=== PATIENT | female | born 1955 | race Caucasian/White ===

== ENCOUNTER 2018-01-15 09:04 | Outpatient (CLI) | payer BC | END 2018-01-15 09:05 | disposition home or self-care (01) | LOC: BICMAMMO 09:04 | PROVIDERS: ATTEND Obstetrics & Gynecology | DX: Z12.31 Encounter for screening mammogram for malignant neoplasm of breast (principal) | CPT/HCPCS: 77063; 77067 ==

== ENCOUNTER 2019-01-16 09:17 | Outpatient (CLI) | payer BC ==
--- NOTE | 2019-01-17 11:58 | MMO ---
Bilateral MAMMO Bilat Screen [facility]. CLINICAL HISTORY: Patient is 63 years old and is seen for screening. The patient has no family history of breast cancer. The patient has no personal history of cancer. The patient has a history of left Ultrasound Guided Core Biopsy in December,, left Ultrasound Guided Core Biopsy in December, - benign, right Excisional Biopsy in - Benign, left Ultrasound Guided Core Biopsy in 2004 - benign, left Excisional Biopsy in 1997 - Benign and bilateral Cyst Aspiration - Patient has had multiple cyst aspirations over the. VIEWS: The views performed were: bilateral craniocaudal with tomosynthesis and bilateral mediolateral oblique with tomosynthesis. FILMS COMPARED: The present examination has been compared to prior imaging studies performed at on 08/15/2004, 02/14/2005, 08/16/2005, 02/14/2006, 02/15/2007, 02/17/2008, 02/17/2009, 12/16/2009, 07/05/2010, 12/19/2010, 07/28/2011, 12/20/2011, 06/04/2012, 12/25/2012, 12/26/2013, 12/28/2014, 12/31/2015, 01/09/2017 and 01/15/2018. MAMMOGRAM FINDINGS: There are scattered fibroglandular densities. Finding 1: There is a stable post-surgical scar seen in the left breast. Finding 2: There is a stable biopsy clip seen in the left breast. Finding 3: There are stable benign appearing calcifications seen in both breasts. Finding 4: There are stable benign appearing densities seen in both breasts. There are no suspicious masses, suspicious calcifications, or new areas of architectural distortion. IMPRESSION: THERE IS NO MAMMOGRAPHIC EVIDENCE OF MALIGNANCY. A ROUTINE FOLLOW-UP MAMMOGRAM IN 1 YEAR IS RECOMMENDED. THE RESULTS OF THIS EXAM WERE SENT TO THE PATIENT. ACR BI-RADS Category 2 - Benign finding MAMMOGRAPHY NOTE: 1. A negative mammogram report should not delay a biopsy if a dominant of clinically suspicious mass is present. 2. Approximately 10% to 15% of breast cancers are not detected by mammography. 3. Adenosis and dense breasts may obscure an underlying neoplasm.
== END 2019-01-16 09:18 | disposition home or self-care (01) ==
LOC: BICMAMMO 09:17
PROVIDERS: ATTEND Obstetrics & Gynecology
DX: Z12.31 Encounter for screening mammogram for malignant neoplasm of breast (principal)
CPT/HCPCS: 77063; 77067

== ENCOUNTER 2019-02-18 10:36 | Outpatient (CLI) | payer BC ==
--- NOTE | 2019-02-18 11:31 | BD ---
BONE DENSITOMETRY USING DEXA: HISTORY: Postmenopausal screening for osteoporosis. FINDINGS: Lumbar Spine: BMD (g/cm2) L1 0.950 T-Score: -0.4 Z-Score: 1.1 L2 1.059 T-Score: 0.3 Z-Score: 1.9 L3 1.043 T-Score: -0.4 Z-Score: 1.4 L4 0.953 T-Score: -1.0 Z-Score: 0.8 L1-L4 0.998 T-Score: -0.4 Z-Score: 1.2 Femoral Neck: 0.871 T-Score: 0.1 Z-Score: 1.6 Total Femur: 1.068 T-Score: 1.0 Z-Score: 2.2 Impression: Normal bone mineral density. No evidence of osteopenia/osteoporosis. POS: [facility]
== END 2019-02-18 10:37 | disposition home or self-care (01) ==
LOC: BICMAMMO 10:36
PROVIDERS: ATTEND Family Medicine
DX: Z13.820 Encounter for screening for osteoporosis (principal); M85.88 Other specified disorders of bone density and structure, other site
CPT/HCPCS: 77080

== ENCOUNTER 2019-07-15 14:38 | Outpatient (CLI) | payer BC ==
--- NOTE | 2019-07-15 14:58 | RAD ---
XR Finger(s) Lt Min 2 View History: Nodule of finger Comparison: None. Findings: There is a small erosion along the medial margin of the middle phalanx head small finger. M ild adjacent soft tissue swelling. Impression: Small erosion medial aspect middle phalanx head at the distal phalangeal joint small fing er may be sequela of extensive mass effect from a small mass versus erosion from prior ligamentous injury. Recommend MRI with without contrast if clinically warranted.
== END 2019-07-15 14:39 | disposition home or self-care (01) ==
LOC: BICRAD 14:38
PROVIDERS: ATTEND Family Medicine
DX: R22.32 Localized swelling, mass and lump, left upper limb (principal); M85.842 Other specified disorders of bone density and structure, left hand

== ENCOUNTER 2020-04-07 10:34 | Outpatient (CLI) | payer BC ==
--- NOTE | 2020-04-07 12:19 | MMO ---
Bilateral MAMMO Bilat Screen [facility]. CLINICAL HISTORY: Patient is 64 years old and is seen for screening. The patient has no family history of breast cancer. The patient has no personal history of cancer. The patient has a history of left Ultrasound Guided Core Biopsy in December,, left Ultrasound Guided Core Biopsy in December, - benign, right Excisional Biopsy in - Benign, left Ultrasound Guided Core Biopsy in 2004 - benign, left Excisional Biopsy in 1997 - Benign and bilateral Cyst Aspiration - Patient has had multiple cyst aspirations over the. VIEWS: The views performed were: bilateral craniocaudal; bilateral craniocaudal with tomosynthesis; and bilateral mediolateral oblique with tomosynthesis. FILMS COMPARED: The present examination has been compared to prior imaging studies performed at [facility] on 12/31/2015, 01/09/2017, 01/15/2018 and 01/16/2019. This study has been interpreted with the assistance of computer-aided detection. MAMMOGRAM FINDINGS: There are scattered fibroglandular densities. Benign calcifications are noted bilaterally. Left biopsy clips. There are no suspicious masses, suspicious calcifications, or new areas of architectural distortion. IMPRESSION: THERE IS NO MAMMOGRAPHIC EVIDENCE OF MALIGNANCY. A ROUTINE FOLLOW-UP MAMMOGRAM IN 1 YEAR IS RECOMMENDED. THE RESULTS OF THIS EXAM WERE SENT TO THE PATIENT. ACR BI-RADS Category 2 - Benign finding MAMMOGRAPHY NOTE: 1. A negative mammogram report should not delay a biopsy if a dominant of clinically suspicious mass is present. 2. Approximately 10% to 15% of breast cancers are not detected by mammography. 3. Adenosis and dense breasts may obscure an underlying neoplasm. Reported by: ASHELY RAMIREZ MD Electonically Signed: [id number]
== END 2020-04-07 10:35 | disposition home or self-care (01) ==
LOC: BICMAMMO 10:34
PROVIDERS: ATTEND Obstetrics & Gynecology
DX: Z12.31 Encounter for screening mammogram for malignant neoplasm of breast (principal); Z91.89 Other specified personal risk factors, not elsewhere classified
CPT/HCPCS: 77063; 77067

== ENCOUNTER 2021-04-12 08:42 | Outpatient (CLI) | payer MEDICARE, BC | END 2021-04-12 08:43 | disposition home or self-care (01) | LOC: BICMAMMO 08:42 | PROVIDERS: ATTEND Obstetrics & Gynecology | DX: Z12.31 Encounter for screening mammogram for malignant neoplasm of breast (principal); N64.89 Other specified disorders of breast; Z91.89 Other specified personal risk factors, not elsewhere classified | CPT/HCPCS: 77063; 77067 ==

== ENCOUNTER 2021-04-15 08:38 | Outpatient (CLI) | payer MEDICARE, BC | END 2021-04-15 08:39 | disposition home or self-care (01) | LOC: BICMAMMO 08:38 | PROVIDERS: ATTEND Obstetrics & Gynecology | DX: N64.89 Other specified disorders of breast (principal) | CPT/HCPCS: 77065; G0279 ==

== ENCOUNTER 2022-04-18 10:00 | Outpatient (CLI) | payer MEDICARE, BC | END 2022-04-18 10:01 | disposition home or self-care (01) | LOC: BICMAMMO 10:00 | PROVIDERS: ATTEND Obstetrics & Gynecology | DX: Z12.31 Encounter for screening mammogram for malignant neoplasm of breast (principal) | CPT/HCPCS: 77063; 77067 ==

== ENCOUNTER 2024-02-28 09:37 | Outpatient (CLI) | payer MEDICARE | END 2024-02-28 09:38 | disposition home or self-care (01) | LOC: BICULT 09:37 | PROVIDERS: ATTEND Internal Medicine Gastroenterology | DX: R10.11 Right upper quadrant pain (principal) | CPT/HCPCS: 76705 ==

== ENCOUNTER 2024-04-21 10:43 | Outpatient (CLI) | payer MEDICARE | END 2024-04-21 10:44 | disposition home or self-care (01) | LOC: BICMAMMO 10:43 | PROVIDERS: ATTEND Obstetrics & Gynecology | DX: Z12.31 Encounter for screening mammogram for malignant neoplasm of breast (principal); Z91.89 Other specified personal risk factors, not elsewhere classified | CPT/HCPCS: 77063; 77067 ==